=== PATIENT | male | born 1970 | race Hispanic/Latino ===

== ENCOUNTER 2021-01-12 08:59 | Day surgery (SDC) | payer OTHER ==
--- NOTE | 2021-01-11 14:31 | RAD REPORT ---
EXAM DESCRIPTION: RAD - Chest Pa And Lat (2 Views) - 01/11/2021 2:03 pm CLINICAL HISTORY: preop, pending cholecystectomy COMPARISON: None TECHNIQUE: Frontal and lateral views of the chest were obtained. FINDINGS: The lungs are clear. Heart size is normal and central vasculature is within normal limit s. No pleural effusion or pneumothorax seen. No acute bony finding noted. No aortic abnormality. IMPRESSION: No acute cardiopulmonary process.
[2021-01-11 14:46] LABS: Absolute Lymphocytes (CBC) 1.8 K/uL (0.7-4.9); Basophils % 0.6 % (0-1.3); Hematocrit 43.8 % (39.6-49.0); Lymphocytes % 29.1 % (15.3-44.8); MPV 8.8 fL (7.6-11.3); RBC Red Blood Cell Count 5.08 M/uL (4.33-5.43)
[2021-01-11 14:58] LABS: ALT/SGPT 53 U/L (12-78); AST/SGOT 17 U/L (15-37); Albumin 4.4 g/dL (3.4-5.0); Alkaline Phosphatase 54 U/L (45-117); Amylase 38 U/L (25-115); BUN Blood Urea Nitrogen 14 mg/dL (7-18); Bicarbonate 29 mmol/L (21-32); Bilirubin Direct 0.1 mg/dL (0-0.2); Bilirubin Total 0.6 mg/dL (0.2-1.0); Glucose Level 126 mg/dL (74-106); Lipase 108 U/L (73-393); Potassium 3.8 mmol/L (3.5-5.1); Sodium Level 141 mmol/L (136-145)
[2021-01-12] MEDS ORDERED: NA CHLORIDE 0.9% 1,000 ML ONE (10:26)
[2021-01-12] MEDS ORDERED: CEFOXITIN/SWI 1gm 1 GM/10 ML SYR ONE (10:26)
[2021-01-12] MEDS ORDERED: FENTANYL CITR 100 MCG/2 ML ONE ×3 (11:13→13:23)
--- NOTE | 2021-01-12 12:21 | P.BOP ---
Preoperative diagnosis: RUQ abd pain, cholecystitis Postoperative diagnosis: same Primary procedure: Laparoscopic cholecystectomy Wax Engraver: Carito Will ([place]) Estimated blood loss: <10cc Specimen: gb Findings: as above Anesthesia: General Complications: None Transferred to: Recovery Room Condition: Good
[2021-01-12] MEDS ORDERED: MIDAZOLAM HCL 2 MG/2 ML INJ ONE (12:25)
[2021-01-12] MEDS ORDERED: ROCURONIUM 50 MG/5 ML VIAL IV ONE (12:25)
[2021-01-12] MEDS ORDERED: LIDOCAINE 1% MPF 5 ML VIAL ONE (12:25)
[2021-01-12] MEDS ORDERED: propofoL 200 MG/20 ML VIAL IV ONE (12:25)
[2021-01-12] MEDS ORDERED: NEOSTIGMINE 1 MG/ML -5 ML ONE (13:05)
[2021-01-12] MEDS ORDERED: GLYCOPYRROLATE 0.2 MG/ML SYR ONE (13:05)
[2021-01-12] MEDS ORDERED: ONDANSETRON 4 MG/2 ML VIAL ONE (13:05)
[2021-01-12] MEDS ORDERED: KETOROLAC 30 MG/ML INJ ONE (13:06)
[2021-01-12] MEDS ORDERED: Mastisol Adhesive Liq ONE (13:41)
[2021-01-12 14:30] VITALS: BP 127/77; TEMP 96.9; O2SAT 96
[2021-01-12] MEDS ORDERED: HYDROCODONE/APAP 5/325 MG TAB PO ONE (14:39)
[2021-01-12] MEDS ORDERED: HYDROCODONE/APAP 10/325 TAB ONE (14:53)
--- NOTE | 2021-01-13 07:41 | EKG ---
Test Date: 2021-01-11 Test Time: 13:04:51 Hand Candle Molder: CEM MEASUREMENT RESULTS: Intervals: Rate: 63 VT: 150 QRSD: 100 QT: 392 QTc: 401 [place]: P: 53 VT: 150 QRS: 44 T: 36 INTERPRETIVE STATEMENTS: Normal sinus rhythm Normal ECG No previous ECG available for comparison Electronically Signed On 01-13-21 07:35:20 CDT by Sma Isaacs
--- NOTE | 2021-01-17 22:05 | OP ---
Date of Procedure: 01/17/2021 Surgeon: Jose Wong MD Sales Branch Manager: Carito Will. Preoperative Diagnoses: Right upper quadrant abdominal pain, cholecystitis. Postoperative Diagnoses: Right upper quadrant abdominal pain, cholecystitis. Procedure: Laparoscopic cholecystectomy. Anesthesia: General plus local. Specimen: Gallbladder. Indications: This is a case of a male, who comes to us with above diagnosis. Fully explained the be nefits, alternatives, and risks of a laparoscopic possible open cholecystectomy, which include, but n ot limited to infection, bleeding, damage to adjacent structures, anesthesia complication, choledocho lithiasis, bile leak, pancreatitis, VA, and even . He also understands this may not relieve his symptoms. He might need more than one surgical intervention. He understood, signed a consent. Procedure In Detail: The patient was brought to the operating room, placed in supine position. Anes thesia was done without complication. Abdominal area was prepped and draped in a sterile fashion. M arcaine 0.5% was injected for local anesthetic followed by sharp incision of the skin in the infraumb ilical region. The incision was carried down to fascia, which was opened under direct vision. Perit oneum was encountered, opened under direct vision. Vicryl #1 placed inside the fascia. Adam troca r was carefully introduced. Pneumoperitoneum was obtained. I placed 3 more trocars, 5 mm each one o f them in epigastric and upper quadrant area under direct visualization. This allowed me to put a gr asper in the fundus of the gallbladder and another grasper in the infundibulum retracting the gallbla dder in the inferolateral fashion exposing the triangle of Calot and obtaining critical view. The cy stic duct and cystic artery were clearly isolated, freed circumferentially and a connection between t hose and the gallbladder was clearly identified. I proceeded to ligate those by using at least 3 clip s proximal and 1 clip distal, ligation in the middle. Same was done with the cystic artery. No bile leak, no bleeding. The gallbladder was removed from the liver using Bovie cauterizer and removed fr om abdominal cavity using an EndoCatch through the umbilical incision. The area was inspected once a gain. No bile leak, no bleeding. Clips were intact. At that moment, I proceeded to remove the troc ars under direct vision. Deflated pneumoperitoneum. Closed the fascia with #1 Vicryl. Irrigated th e subcutaneous tissue and closed the skin. Sponge count and instrument counts correct. The patient tolerated the procedure well. The patient was sent to recovery in stable condition. Discharge Summary: Diagnoses: Right upper quadrant abdominal pain, cholecystitis. Procedure: Laparoscopic cholecystectomy. Disposition: Home. Activity: As tolerated, no heavy lifting. Plan: Follow up in my office in 1 week. Call for appointment on [phone]. Keep the area dry for 48 hours, then may shower. DESTIN/ANDRES Voice ID: [id number] Report ID: [id number]
== END 2021-01-12 15:00 | disposition home or self-care (01) ==
LOC: OR 08:59
PROVIDERS: ATTEND Surgery
PROC: 0FT44ZZ Resection of Gallbladder, Percutaneous Endoscopic Approach (ICD-10-PCS; principal; 2021-01-12 12:30)
DX: K80.10 Calculus of gallbladder with chronic cholecystitis without obstruction (principal); Z20.822 Contact with and (suspected) exposure to COVID-19
CPT/HCPCS: 93005; 85025; 80048; 36415; 82150; 82947 ×2; 80076; 88304; 83690; 71046; 47562; U0003; J2704; J2250; J3010 ×3; J2710; J7030; J2405